=== PATIENT | male | born 1945 | race Caucasian/White ===

== ENCOUNTER 2016-10-13 13:05 | Emergency (ER) | payer MEDICARE ==
[~2016-10-13] VITALS: Ht 174 cm; Wt 79.5 kg
[~2016-10-13 13:05] MED LIST: ASCO-296 PO; ASPI-558 PO; CARB1TAB20 PO; CLON0.5T4 PO; DONE10TA30 PO; FISH1CAP2 PO; FLAX100029 PO; FLUT16SP12 NS; GABA-338 PO; MELO-267 PO; ROPI1TAB12 PO; VITA100014 PO; VITA200C63 PO
[2016-10-13 13:08] VITALS: Ht 174 cm; Wt 79.5 kg
--- NOTE | 2016-10-13 13:30 | NUR ---
EKG OBTAINED AND RESULTS GIVEN TO
[2016-10-13] MEDS ORDERED: VIT1TABL PO (13:34)
[2016-10-13] MEDS ORDERED: ROPI2TAB6 PO (13:34)
--- NOTE | 2016-10-13 13:45 | NUR ---
NITRO SL TAB GIVEN PER ORDERS RATES CHEST PAIN 12/26
--- NOTE | 2016-10-13 13:50 | NUR ---
STATUS PATIENT REPORTS CHEST PAIN IMPROVED BRIEFLY, BUT CONTINUES TO BE 7/10 AT THIS TIME. BLOOD PRESSURE DROPPED AND INSTRUCTED TO HOLD ADDITIONAL DOSE OF NITRO
[2016-10-13] MEDS ORDERED: NORMAL SALINE 1,000 ML IV ONE (13:52)
[2016-10-13] MEDS ORDERED: ASPIRIN 81 MG CHEWABLE TABLET PO ONE (14:00)
[2016-10-13] MEDS ORDERED: NITROGLYCERIN 0.4 MG SUBLINGUAL TABLET SL PRN (14:00)
[2016-10-13 14:01] LABS: HCT - HEMATOCRIT 38.8 % (41-53); HGB - HEMOGLOBIN 12.8 GM/DL (13.5-17.5); MEAN CORPUSCULAR HGB 31.4 UUG (26-34); MEAN CORPUSCULAR VOLUME 95.1 UM3 (80-100); MEAN PLATELET VOLUME 10.9 UM3 (9.4-12.4); RED BLOOD COUNT 4.08 M/MM3 (4.50-5.90); WBC - WHITE BLOOD COUNT 10.1 T/MM3 (4.5-11.0)
[2016-10-13 14:03] LABS: INR 1.07 (0.76-1.04); PROTHROMBIN TIME 11.7 SEC (9.31-12.49)
[2016-10-13 14:06] LABS: ALBUMIN 3.7 G/DL (3.5-5.0); ALBUMIN/GLOBULIN RATIO 1.1 RATIO (1.1-2.2); ALKALINE PHOSPHATASE 83 U/L (38-126); ALT (SGPT) 28 U/L (21-72); ANION GAP 13 MEQ/L (5-15); AST (SGOT) 34 U/L (17-59); BUN/CREATININE RATIO 18 RATIO (6-26); CHLORIDE 105 MEQ/L (98-107); CO2 - CARBON DIOXIDE 27 MEQ/L (22-30); CREATININE 1.1 MG/DL (0.8-1.5); GLOMERULAR FILTRATION RATE 66; GLUCOSE 110 MG/DL (75-110); POTASSIUM 4.1 MEQ/L (3.6-5); SODIUM 145 MEQ/L (134-144); TOTAL PROTEIN 7.1 G/DL (6.3-8.2)
--- NOTE | 2016-10-13 14:13 | ERPDOC ---
Departure Disposition Decision Date: Oct 13, 2016 Disposition Decision Time: 17:15 Disposition: 01 DISCHARGED HOME, SELF-CARE Impression Impression Impression: Primary Impression: Pneumonia Additional Impression: Chest pain Condition: Improved Seen By: Physician only Referrals: APRIL SALEH II, MD (Family) Patient Instructions: Bacterial Pneumonia (ED), Chest Pain (ED) Problems/Meds/Labs Reviewed?: Yes Medications reviewed and manag: Yes Additional Instructions: Zithromax 500 mg, one tablet daily. Please see her primary care provider on Monday to follow-up on the lesions which we saw in your lungs. Follow up care ordered?: Yes Mental Status: Alert, Oriented Scripts Azithromycin (Zithromax Tri-Ashok) 500 Mg Tablet 1 TAB PO DAILY for 3 Days, TAB Prov: HAMMAD MENDEZ MD 10/13/16 HPI - Chest Pain General Chief Complaint: Chest Pain Stated Complaint: CP Time Seen by Provider: 13:52 HPI - Chest Pain Initial Comments 71-year-old male with chest pain which started this morning. He has no previous cardiac history, although he has had 2 "scares". One was about 15 years ago and one was about 40 years ago. He does have Parkinson's disease. Nonsmoker, nondrinker. He is active, works out daily. He did not change his workout or lift any heavy objects than usual. He has had no nausea vomiting, no arm pain or neck pain. Was given nitroglycerin sublingual which helped bring his pain from a 7 out of 10 to a 2 out of 10, but after a few minutes pain return to his 7. Aspirin Treatment Today: 81 mg x 4 Allergies: Coded Allergies: No Known Allergies (Unverified , 10/23/15) Past History Past Medical History Neurological: other Musculoskeletal: osteoarthritis Psychological: dementia Surgical History General: back, colonoscopy, hernia, other Vaccines Hx Influenza Vaccination: Yes (UNKNOWN DATE) Hx Pneumococcal Vaccination: Yes (UNKNOWN DATE) Hx Tetanus Diptheria: Yes (11/11/14) Review of Systems Cardiovascular Cardiac: see HPI Pulmonary Respiratory: see HPI GI Upper Abdomen: see HPI Physical Exam General General Nourishment: well nourished, well developed, appears stated age, no acute distress General Body Habitus: well groomed Vitals and Pain First Documented Vital Signs Date Time Temp Pulse Resp B/P Pulse Ox O2 Delivery O2 Flow Rate FiO2 10/13/16 13:08 98.1 88 16 162/108 100 Room Air Weight: Kilograms: 79.500 Height (feet): 5 Height (inches): 8.50 Triage Pain Scale: Normal Exams: Head: Normocephalic w/o trauma Eyes: Pupils are PERRLA w/ EOMI, No scleral icterus, irritation, or foreign bodies noted CV: Regular rate and rhythm, without murmur or gallop, Pulses 2+ all extremities, capillary refill, <2 seconds all ext., no pedal edema noted Abdomen: Bowel sounds positive, soft, non-tender, non-distended, no hepatosplenomegaly, masses or bruits noted Respiratory (brief) Respiratory: FOUND: wheezes, NOT FOUND: clear all streeter Differential Diagnoses Considering: Anxiety/Panic, Aortic Dissection, CHF, Costochondritis, Esophageal Spasm, Pancreatitis, Pericarditis, Pneumonia, Pulmonary Edema, Pulmonary Embolus Progress Results/Orders Orders Procedure Category Date Status Time Cbc W/Auto LAB 10/13/16 Complete Diff-Reflex Manual 13:52 Cmp - Comprehensive LAB 10/13/16 Complete Metabolic 13:52 Probnp LAB 10/13/16 Complete 13:52 Troponin I W LAB 10/13/16 Complete Hemolysis Index 13:52 INR LAB 10/13/16 Complete 13:52 Ua, Dip Wreflex LAB 10/13/16 Complete Microsc [employer] 13:52 D-Dimer LAB 10/13/16 Complete 13:52 EKG EKG 10/13/16 Taken 13:52 Chest, Pa & Lateral RAD 10/13/16 Resulted 13:52 Iv Lock (Ed Only) EDM 10/13/16 Transmitted 13:52 Normal Saline (Normal PHA 10/13/16 Complete Saline Iv) 13:52 Aspirin (Asa) PHA 10/13/16 Complete 14:00 Nitroglycerin PHA 10/13/16 In Process (Nitrostat) 14:[address] 10/13/16 Resulted 15:16 Iohexol (Omnipaque) PHA 10/13/16 Complete 15:28 Normal Saline (Ns) PHA 10/13/16 Complete 15:28 Saline Flush (Iv PHA 10/13/16 Complete Flush) 15:28 Lab Results Laboratory Tests Test 10/13/16 13:52 10/13/16 16:51 White Blood Count 10.1T/MM3 Red Blood Count 4.08M/MM3 Hemoglobin 12.8GM/DL Hematocrit 38.8% Mean Corpuscular Volume 95.1UM3 Mean Corpuscular Hemoglobin 31.4UUG Mean Corpuscular Hemoglobin Concent 33.0GM/DL RDW Standard Deviation 42.9FL Platelet Count 252T/MM3 Mean Platelet Volume 10.9UM3 Immature Granulocyte % (Auto) % Neutrophils (%) (Auto) % Lymphocytes (%) (Auto) % Monocytes (%) (Auto) % Eosinophils (%) (Auto) % Basophils (%) (Auto) % Absolute Immature Granulocyte (auto T/MM3 Absolute Neutrophils (auto) T/MM3 Absolute Lymphocytes (auto) T/MM3 Absolute Monocytes (auto) T/MM3 Absolute Eosinophils (auto) T/MM3 Absolute Basophils (auto) T/MM3 Neutrophils % (Manual) 80.0% Lymphocytes % (Manual) 9.0% Monocytes % (Manual) 11.0% Absolute Neutrophils (Manual) 8.1T/MM3 Lymphocytes # (Manual) 0.9T/MM3 Monocytes # (Manual) 1.1T/MM3 Red Cell Morphology Comment Normal Prothromb Time International Ratio 1.07 D-Dimer 344NG/ML Turbidity < 20 Sodium Level 145MEQ/L Potassium Level 4.1MEQ/L Chloride Level 105MEQ/L Carbon Dioxide Level 27MEQ/L Anion Gap 13MEQ/L Blood Urea Nitrogen 20.0MG/DL Creatinine 1.1MG/DL Glomerular Filtration Rate Calc 66 BUN/Creatinine Ratio 18RATIO Glucose Level 110MG/DL Calculated Osmolality 283MOSM/KG Calcium Level 9.0MG/DL Total Bilirubin 0.60MG/DL Icterus Index < 2 Aspartate Amino Transf (AST/SGOT) 34U/L Alanine Aminotransferase (ALT/SGPT) 28U/L Alkaline Phosphatase 83U/L Troponin I < 0.012ng/ml RM-Rhp-X-Type Natriuretic Peptide 147PG/ML Total Protein 7.1G/DL Albumin 3.7G/DL Globulin 3.4G/DL Albumin/Globulin Ratio 1.1RATIO Chemistry Specimen Hemolysis < 15 Urine Collection Type Voided-not cc-midstr Urine Color Yellow Urine Turbidity Clear Urine pH 6.0 Urine Specific Gregory <=1.005 Urine Protein Negative Urine Glucose (UA) Negative Urine Ketones Negative Urine Blood Trace-intact Urine Nitrite Negative Urine Bilirubin Negative Urine Urobilinogen 0.2EU/DL Urine Leukocyte Esterase Negative Urinalysis Comment Microscopic not ind. Medications Current ED Medications Sodium Chloride (Normal Saline IV) 1,000 ml @ 1,000 mls/hr Q1H ONCE IV Last administered on 10/13/16 14:20; Start 10/13/16 at 13:52; Stop 10/13/16 at 14:51 ; Status DC Aspirin (ASA) 324 mg O ONCE PO Last administered on 10/13/16 13:15; Start at 14:00; Stop 10/13/16 at 14:01; Status DC Nitroglycerin (Nitrostat) 0.4 mg Q5MIN PRN SL CHEST PAIN Last administered on 13:45; Start 10/13/16 at 14:00 Iohexol 1 bottle 1 bottle STK-MED ONCE .ROUTE ; Start 10/13/16 at 15:28; Stop at 15:29; Status DC Sodium Chloride (NS) 100 ml @ As Directed STK-MED ONCE .ROUTE ; Start 10/13/16 at 15:28; Stop 10/13/16 at 15:29; Status DC Sodium Chloride (Iv Flush) 10 ml STK-MED ONCE .ROUTE ; Start 10/13/16 at 15:28; Stop 10/13/16 at 15:29; Status DC Progress Progress Patient has negative troponin, normal EKG. Because of the slightly elevated d- dimer, I did order CT PE. CT showed ground glass appearance with multiple nodules bilateral. Basically this is either metastatic cancer or metastatic fungus or metastatic bacterial infection. Patient was started on Rocephin and Zithromax. He'll follow up with his primary care provider on Monday. He understands that this may take some time to work out and that there will be probably more imaging and medication changes. At this time he is not hypoxic and is stable. HAMMAD MENDEZ MD Oct 13, 2016 14:13
--- NOTE | 2016-10-13 14:16 | NUR ---
RETURNED FROM RADIOLOGY
[2016-10-13 14:17] LABS: LYMPHOCYTES # (MANUAL) 0.9 T/MM3 (1-4.8); MONOCYTES # (MANUAL) 1.1 T/MM3 (0-0.8); NEUTROPHILS #(MANUAL)-ABSOLUTE 8.1 T/MM3 (1.8-7.7); TOTAL CELLS COUNTED 100 %
[2016-10-13 14:21] LABS: PROBNP 147 PG/ML (0-175)
--- NOTE | 2016-10-13 14:30 | NUR ---
STATUS PATIENT RESTING IN BED WITH EYES CLOSED. REPORTS PAIN IS 4/10. NO DISTRESS NOTED
--- NOTE | 2016-10-13 14:33 | DI ---
INDICATION: ITS.REASON: chest pain PROCEDURE: CHEST 2-VIEWS UPRIGHT (PA \T\ LAT) Encounter: Initial COMPARISON: None FINDINGS: The lungs are clear without evidence of focal abnormal airspace opacity. There is no pleural effusion or pneumothorax. The heart size, mediastinal contours and pulmonary vascularity are within normal limits. Degenerative change in the spine IMPRESSION: No acute cardiopulmonary disease. .
[2016-10-13] MEDS ORDERED: SALINE FLUSH 10ml SYRINGE ONE (15:28)
[2016-10-13] MEDS ORDERED: NORMAL SALINE 100 ML ONE (15:28)
[2016-10-13] MEDS ORDERED: IOHEXOL 350 MG/ML 75ml INJECTION ONE (15:28)
--- NOTE | 2016-10-13 15:50 | NUR ---
RETURNED FROM CT
--- NOTE | 2016-10-13 16:07 | DI ---
Indication: ITS.REASON: chest pain PROCEDURE: CTA PULMONARY EMBOLI: Encounter: Initial Comparison: Chest x-ray from today Technique: Axial CT pulmonary angiographic phase images were performed through the chest after the administration of intravenous contrast. Coronal and Sagittal MIP reconstructed images were created and reviewed. Automated Exposure Control and Iterative Reconstruction dose reducing techniques were utilized. Contrast: Omnipaque 350 62 mL Findings: Pulmonary arteries: Exam is diagnostic to the subsegmental pulmonary arterial level. No filling defects identified to suggest a pulmonary embolus. Other findings: Multifocal scattered groundglass nodules seen in both lungs. [employer] nodule in the right upper lobe on image #18 measures 1.2 cm in diameter. Left upper lobe nodule on image #21 measures 1.4 cm in diameter. No lobar consolidation. No pleural effusion or pneumothorax. The central airways are patent. No axillary or mediastinal adenopathy by CT criteria. Heart size is normal. No pericardial effusion. The upper abdomen shows no acute findings. Prominent right renal cysts noted incidentally. Bone windows show no acute findings. Impression: 1. No pulmonary embolus. 2. Multifocal nonspecific groundglass nodules scattered throughout both lungs. These are most likely infectious or inflammatory. Differential considerations include atypical, viral or fungal pneumonia. Pulmonary vasculitis, septic emboli, drug reaction and potentially metastatic disease are also within the differential. Recommend clinical and laboratory correlation. Short-term follow-up CT in one to two months is recommended to evaluate for interval change. .
[2016-10-13 16:58] LABS: BLOOD, URINE TRACE-INTACT (NEGATIVE); COLOR,URINE YELLOW (YELLOW); LEUKOCYTE ESTERASE ,URINE NEGATIVE (NEGATIVE); NITRITE,URINE NEGATIVE (NEGATIVE); UROBILINOGEN,URINE 0.2 EU/DL (NORMAL)
[2016-10-13] MEDS ORDERED: AZIT500T2 PO (17:17)
[2016-10-13] MEDS ORDERED: CEFTRIAXONE 1 GRAM INJECTION IM ONE (17:30)
[2016-10-13 17:40] VITALS: BP 112/75; PULSE 62; RESP 18; TEMP 98.1; O2SAT 97
== END 2016-10-13 17:40 | disposition home or self-care (01) ==
LOC: ED 13:05
DX: J18.9 Pneumonia, unspecified organism (principal)
CPT/HCPCS: 71020; 71275; 80053; 81003; 83880; 84484; 85025; 85379; 85610; 93005; 96360; 96372; 99284; A9270; J0696; J7030; J7050; Q9967